=== PATIENT | male | born 1990 | race African-American/Black ===

== ENCOUNTER 2019-11-05 19:45 | Emergency (ER) | payer OTHER ==
[2019-11-05 20:09] VITALS: BP 147/85; PULSE 84; BMI 34.7
[2019-11-05] MEDS ORDERED: IBUPROFEN 600 MG TABLET (FP) PO ONE ×2 (20:24→20:33)
--- NOTE | 2019-11-05 20:29 | PDOC ---
History of Present Illness - General Chief Complaint: Cold Symptoms Stated Complaint: COUGHING/FEVER/HEADACHE Time Seen by Provider: 11/05/19 20:00 History Source: Patient Exam Limitations: No Limitations - History of Present Illness Initial Comments: 11/05/19 20:26 Patient is a 29-year-old male who presents to the ED with complaint of body aches, fevers with T-max of 102F, and headache since yesterday. He denies any neck pain. He states his daughter was ill with similar symptoms and is pending a flu test. The patient states he would like to know if he has a flu. He took TheraFlu earlier which did not help. He denies any throat or ear pain. The patient is a smoker. He denies any past medical history. Past History - Past Medical History Allergies/Adverse Reactions: Allergies Allergy/AdvReac Type Severity Reaction Status Date / Time No Known Allergies Allergy Verified 11/05/19 19:59 Home Medications: Ambulatory Orders Ibuprofen [Motrin -] 600 mg PO TID PRN #21 tablet 11/05/19 CVA: No COPD: No CHF: No DVT: No Dementia: No - Psycho Social/Smoking Cessation Hx Smoking History: Never smoked Hx Alcohol Use: No Drug/Substance Use Hx: No Review of Systems - Review of Systems Comments:: 11/05/19 20:27 - Review of Systems Able to Perform ROS?: Yes Constitutional: No: Night Sweats, Weakness; Positive fever and chills with loss of appetite HEENTM: No: Eye Pain, Vision changes, Ear Pain, Throat Pain, Throat Swelling, Mouth Pain, Difficulty Swallowing Respiratory: No: Cough, Shortness of Breath, Wheezing, Sputum Production Cardiac (ROS): No: Chest Pain, Chest Tightness, Palpitations, Irregular Heart Beat, Edema ABD/GI: No: Nausea, Vomiting, Abdominal Pain, Diarrhea : No Dysuria, No Hematuria, No Frequency, No Urgency, No Vaginal Discharge/ Pain, No Penile Discharge/Pain Musculoskeletal: No: Back Pain, Joint Pain, Muscle Weakness, Neck Pain; positive muscle aches Integumentary: No: Lesions, Rash Neurological: No: Headache, Numbness, Tingling, Weakness, Speech Difficulties *Physical Exam - Vital Signs Last Vital Signs Temp Pulse Resp BP Pulse Ox 100.2 F H 84 20 147/85 99 11/05/19 20:00 11/05/19 20:00 11/05/19 20:00 11/05/19 20:00 11/05/19 20:00 - Physical Exam 11/05/19 20:28 - Physical Exam General Appearance: Nourished, Appropriately Dressed, Mild distress secondary to not feeling well HEENT: EOMI, Normal Voice, TMs Normal, No Pharyngeal Erythema, No Nasal Congestion, No Rhinorrhea, Hearing Grossly Normal, No TM Bulging. No Muffled/ Hoarse voice, No Tonsillar Exudate, No Tonsillar Erythema, No TM Dullness, No TM Erythema Neck: Supple, No Lymphadenopathy (R), No Lymphadenopathy (L), No Rigidity, No Decreased range of motion Respiratory/Chest: Lungs Clear, Normal Breath Sounds. No Respiratory Distress, No Accessory Muscle Use Cardiovascular: Regular Rhythm, Regular Rate, S1, S2 Gastrointestinal/Abdominal: Normal Bowel Sounds, Soft. Non-tender, No Guarding , No Rebound, No Rigidity Musculoskeletal: Normal Inspection. No Decreased Range of Motion Extremity: Normal Capillary Refill, Normal Inspection Integumentary: Normal Color, Dry. No Rash Neurologic: account executive metalworking II-XII NML intact, Fully Oriented, Alert, Normal Mood/Affect, Normal Response ED Treatment Course - ADDITIONAL ORDERS Additional order review: 11/05/19 21:07 Laboratory Tests 11/05/19 20:30 Influenza A (Rapid) Negative Influenza B (Rapid) Negative Medical Decision Making - Medical Decision Making 11/05/19 21:08 Patient's flu swab is negative. He has been made aware that he should take Tylenol or ibuprofen for fevers or body aches. He should follow-up with his primary doctor within 1 to 2 days for repeat evaluation. He should increase his fluids. He has been given strict return precautions such as high fevers, shaking chills, profuse vomiting or any other worsening symptoms. Discharge - Discharge Information Problems reviewed: Yes Clinical Impression/Diagnosis: Acute viral syndrome Condition: Stable Disposition: HOME - Additional Discharge Information Prescriptions: Ibuprofen [Motrin -] 600 mg PO TID PRN #21 tablet PRN Reason: Fever - Follow up/Referral - Patient Discharge Instructions Patient Printed Discharge Instructions: DI for Viral Upper Respiratory Infection -- Adult Additional Instructions: Get plenty of rest and drink plenty of fluids. Take Tylenol or ibuprofen for fevers or body aches. Follow-up with your primary doctor within 1 to 2 days for repeat evaluation. - Post Discharge Activity Work/Back to School Note: Back to Work
[2019-11-05 21:11] VITALS: TEMP 99.8
== END 2019-11-05 21:13 | disposition home or self-care (01) ==
LOC: JERFT 19:45
DX: B34.9 Viral infection, unspecified (principal); F17.210 Nicotine dependence, cigarettes, uncomplicated
CPT/HCPCS: 87804; 99281-25